=== PATIENT | male | born 1975 | race African-American/Black ===

== ENCOUNTER 2018-06-17 18:46 | Emergency (ER) | payer SELFPAY ==
[2018-06-17 18:56] VITALS: BMI 25.1
[2018-06-17] MEDS ORDERED: ACETAMINOPHEN 325 MG TABLET (FP) ONE (20:00)
--- NOTE | 2018-06-17 20:30 | PDOC ---
Attending Attestation - HPI HPI: The patient is a 42 year old male, with a significant PMH of seizure disorder ( compliant with meds), who presents to the emergency department today s/p witnessed seizure 2.5 hours ago, also complaining of a headache and left elbow pain. As per patients mother, she notes she was present when the seizure took place and states he returned to normal mental state following the episode. Patient denies tongue biting, urination on self, or bowel incontinence during the episode. He is now complaining of an associated headache. Patient also notes the associated elbow pain is localized, and is exacerbated with flexion. The patient denies chest pain, shortness of breath, and dizziness. Denies fever, chills, nausea, vomit, diarrhea and constipation. Allergies: NKA Social history: Denies EtOH or recreational drug use. PCP: Dr. Cris Rahman Neurologist: Dr. Merida 06/17/18 20:44 <Perla Ralph - Last Filed: 06/17/18 22:50> - Resident Resident Name: Hakan Morales - ED Attending Attestation I have performed the following: I have examined & evaluated the patient, The case was reviewed & discussed with the resident, I agree w/resident's findings & plan, Exceptions are as noted - Physicial Exam PE: 06/17/18 20:58 Well appearing, ALLY, AOx3 NCAT, PERRL, EOMI Neck supple, no midline tenderness TTP L elbow, no deformities, swelling MAX, FROM Ambulates with strong, steady gait NFD - Medical Decision Making 06/17/18 20:57 Breakthrough seizure in pt with known seizures and compliant with meds, followed closely by Dr Merida f/u with Dr. Merida likely dc <Anthony Hewitt - Last Filed: 06/17/18 23:01>
[2018-06-17] MEDS ORDERED: ACETAMINOPHEN 325 MG TABLET (FP) PO ONE (20:36)
--- NOTE | 2018-06-17 20:54 | PDOC ---
History of Present Illness - General Chief Complaint: Seizure Stated Complaint: SEIZURE Time Seen by Provider: 06/17/18 19:32 History Source: Patient Exam Limitations: No Limitations - History of Present Illness Initial Comments: 06/17/18 20:36 The patient is a 42M with a PMH of seizures who presents to the ER after having a witnessed seizure. The patient states that he was in his normal state of health today and was in the kitchen with his mother when he had LOC and his mother states that she noticed him seizing. He does not know how long it lasted but denies bowel/bladder incontinence, tongue biting, but admits to pain in his L elbow on active flexion. He admits to a mild headache diffusely throughout his head. He denies fever, chills, nausea, vomiting, numbness, tingling, and weakness. Past History - Past Medical History Allergies/Adverse Reactions: Allergies Allergy/AdvReac Type Severity Reaction Status Date / Time peanut Allergy Verified 06/17/18 18:49 Home Medications: Ambulatory Orders Divalproex Sodium [Depakote] 1,000 mg PO BID 06/17/18 Phenytoin Na Extended [Dilantin -] 250 mg PO BID 06/17/18 COPD: No CHF: No Seizures: Yes - Suicide/Smoking/Psychosocial Hx Smoking History: Never smoked Have you smoked in the past 12 months: No Information on smoking cessation initiated: No Hx Alcohol Use: No Drug/Substance Use Hx: No Review of Systems - Review of Systems Able to Perform ROS?: Yes Comments:: 06/17/18 20:55 GENERAL/CONSTITUTIONAL: No fever or chills. No weakness. HEAD, EYES, EARS, NOSE AND THROAT: No change in vision. No ear pain or discharge. No sore throat. CARDIOVASCULAR: No chest pain, palpitations, or lightheadedness. RESPIRATORY: No cough, wheezing, shortness of breath, or hemoptysis. GASTROINTESTINAL: No nausea, vomiting, diarrhea, constipation, or abdominal pain. GENITOURINARY: No dysuria, frequency, hematuria, or change in urination. MUSCULOSKELETAL: Positive for L elbow pain. No joint or muscle swelling or pain. No neck or back pain. SKIN: No rash or lesions. NEUROLOGIC: Positive for seizure and headache. No numbness, tingling, focal weakness, loss of consciousness, or change in strength/sensation. ENDOCRINE: No increased thirst. No abnormal weight change. HEMATOLOGIC/LYMPHATIC: No anemia, easy bleeding, or history of blood clots. ALLERGIC/IMMUNOLOGIC: No hives or skin allergy. Is the patient limited [place] proficient: No *Physical Exam - Vital Signs Last Vital Signs Temp Pulse Resp BP Pulse Ox 97.6 F 78 14 130/70 100 06/17/18 18:50 12 18:50 12 18:50 06/17/18 18:50 06/17/18 18:50 - Physical Exam Comments: 06/17/18 20:57 GENERAL: Well developed, well nourished. Awake and alert. No acute distress. HEENT: Normocephalic, atraumatic. Hearing grossly normal. Moist mucous membranes. PERRLA, EOMI. No conjunctival pallor. Sclera are non-icteric. NECK: Supple. Full ROM. No JVD. CARDIOVASCULAR: Regular rate and rhythm. No murmurs, rubs, or gallops. PULMONARY: No evidence of respiratory distress. Lungs clear to auscultation bilaterally. No wheezing, rales or rhonchi. ABDOMINAL: Soft. Non-tender. Non-distended. No rebound or guarding. GENITOURINARY: No CVA tenderness bilaterally. MUSCULOSKELETAL: Limited flexion on L elbow w/o TTP over entire humerus, elbow joint, and radius/ulna. Otherwise, normal range of motion at all joints. No bony deformities or tenderness. EXTREMITIES: No cyanosis. No clubbing. No edema. No calf tenderness or swelling. SKIN: Warm and dry. Normal capillary refill. No rashes. No jaundice. NEUROLOGICAL: Alert, awake, appropriate. Cranial nerves 2-12 grossly intact. Normal speech. Gait is normal without ataxia. PSYCHIATRIC: Cooperative. Good eye contact. Appropriate mood and affect. Moderate Sedation - Procedure Monitoring Vital Signs: Procedure Monitoring Vital Signs Temperature 97.6 F 06/17/18 18:50 Pulse Rate 78 06/17/18 18:50 Respiratory Rate 14 06/17/18 18:50 Blood Pressure 130/70 06/17/18 18:50 O2 Sat by Pulse Oximetry (%) 100 06/17/18 18:50 ED Treatment Course - LABORATORY CBC & Chemistry Diagram: 06/17/18 20:15 06/17/18 20:15 Medical Decision Making - Medical Decision Making 06/17/18 20:58 The patient is a 42M with a PMH of seizures who presents after having a seizure. Pt is well appearing and has not had any seizures since 2016. Exam normal. No concerning exam findings requiring repeat imaging. Will order CBC, CMP and d/w Dr. Merida, pt's neurologist to establish a plan for follow up. 06/17/18 22:48 CBC and CMP WNL. Paging Dr. Merida for recs. 06/17/18 22:55 Pt requests to sign out AMA. I have encouraged him to f/u with his neurologist and return if any worsening or persistent symptoms. *DC/Admit/Observation/Transfer Diagnosis at time of Disposition: Seizure - Discharge Dispostion Disposition: AGAINST MEDICAL ADVICE Decision to Admit order: No - Referrals Referrals: Cris Rahman [Primary Care Provider] - - Patient Instructions - Post Discharge Activity
[2018-06-17 21:02] LABS: BASO % 0.8 % (0-2.0); EOS % 0.3 % (0-4.5); HEMATOCRIT 47.6 % (35.4-49); HEMOGLOBIN 16.5 GM/dL (11.7-16.9); MCH 32.2 pg (25.7-33.7); MCHC 34.6 g/dl (32.0-35.9); MEAN PLT VOLUME 8.7 fl (7.5-11.1); NEUT % 68.9 % (42.8-82.8); PLATELET COUNT 262 K/MM3 (134-434); RBC 5.12 M/mm3 (4.00-5.60); RDW 13.1 % (11.9-15.9); WHITE BLOOD COUNT 5.4 K/mm3 (4.0-10.0)
[2018-06-17 21:49] LABS: ALBUMIN 4.3 g/dl (3.4-5.0); ALK PHOS 67 U/L (45-117); ANION GAP 7 MMOL/L (8-16); BILIRUBIN,TOTAL 0.7 mg/dL (0.2-1); BLOOD UREA NITROGEN 13 mg/dL (7-18); CALCIUM 9.2 mg/dL (8.5-10.1); CHLORIDE 100 mmol/L (98-107); CO2 31 mmol/L (21-32); CREATININE 1.1 mg/dL (0.55-1.3); GLUCOSE,RANDOM 76 mg/dL (74-106); POTASSIUM 4.2 mmol/L (3.5-5.1); SGOT/AST 26 U/L (15-37); SGPT/ALT 34 U/L (13-61); SODIUM 138 mmol/L (136-145); TOT PROT 7.4 g/dl (6.4-8.2)
[2018-06-17 22:53] VITALS: BP 148/83; PULSE 77; TEMP 98.2
== END 2018-06-17 22:54 | disposition left against medical advice (07) ==
LOC: JER 18:46
DX: R56.9 Unspecified convulsions (principal)
CPT/HCPCS: 36415; 80053; 82550; 82553; 85025; 99283-25

== ENCOUNTER 2018-11-10 13:07 | Observation (INO) | payer MEDICARE ==
--- NOTE | 2018-11-10 13:34 | PDOC ---
History of Present Illness - General Chief Complaint: Seizure Stated Complaint: SEIZURE Time Seen by Provider: 11/10/18 13:29 - History of Present Illness Initial Comments: 43 year old male with PMH of seizure disorder (suspected s/p anoxic brain injury) presenting with seizure lasting <1 minute approximately 30 minutes prior. States that he was in his chair when it occurred but is unclear if he fell because he was very confused when he woke up. Denies any fevers, chills, nausea, vomiting, cough, or recent illness. He is compliant with his medications and his last seizure was a year ago. His Neurologist is Dr. Baird and his PCP is Silvia. 11/10/18 13:46 Past History - Past Medical History Allergies/Adverse Reactions: Allergies Allergy/AdvReac Type Severity Reaction Status Date / Time peanut Allergy Verified 06/17/18 18:49 Home Medications: Ambulatory Orders Divalproex Sodium [Depakote] 1,000 mg PO BID 06/17/18 Phenytoin Na Extended [Dilantin -] 250 mg PO BID 06/17/18 COPD: No CHF: No Seizures: Yes - Immunization History Immunization Up to Date: Yes - Suicide/Smoking/Psychosocial Hx Smoking History: Never smoked Have you smoked in the past 12 months: No Hx Alcohol Use: No Drug/Substance Use Hx: No Review of Systems - Review of Systems Constitutional: No: Chills, Diaphoresis, Fever, Loss of Appetite HEENTM: No: Blurred Vision, Tearing Respiratory: No: Cough, Shortness of Breath Cardiac (ROS): No: Chest Pain, Irregular Heart Rate ABD/GI: No: Nausea, Vomiting : No: Dysuria, Discharge Integumentary: No: Bruising, Lesions, Lumps Neurological: Yes: Headache. No: Numbness, Paresthesia Psychiatric: No: Anxiety, Depression Hematologic/Lymphatic: No: Anemia, Blood Clots, Easy Bleeding *Physical Exam - Vital Signs Last Vital Signs Temp Pulse Resp BP Pulse Ox 98.3 F 87 18 120/72 99 11/10/18 13:11 11/10/18 13:11 11/10/18 13:11 11/10/18 13:11 11/10/18 13:11 - Physical Exam General Appearance: Yes: Nourished, Appropriately Dressed. No: Apparent Distress HEENT: positive: EOMI, DIANNA, Normal ENT Inspection, Normal Voice Neck: positive: Trachea midline, Normal Thyroid, Supple. negative: Tender, Rigid Respiratory/Chest: positive: Lungs Clear, Normal Breath Sounds. negative: Chest Tender, Respiratory Distress, Accessory Muscle Use Cardiovascular: positive: Regular Rhythm, Regular Rate Gastrointestinal/Abdominal: positive: Normal Bowel Sounds, Flat, Soft. negative : Tender Lymphatic: negative: Adenopathy, Tenderness Musculoskeletal: positive: Normal Inspection. negative: Decreased Range of Motion Extremity: positive: Normal Capillary Refill, Normal Inspection, Normal Range of Motion. negative: Tender Integumentary: positive: Normal Color, Dry, Warm Neurologic: positive: Fully Oriented, Alert, Normal Mood/Affect, Normal Response , Motor Strength 5/5 Medical Decision Making - Medical Decision Making 43 year old male who suffered a seizure without obvious inciting event and has been asymptomatic/ symptom free for his entire stay. His phenytoin level returned low so we loaded him with 1 G of Dilantin per Dr. Baird's instructions. Patient tolerated his medication well and was discharged with follow up instructions and return precautions. He will follow up with Dr. Baird this week. 11/10/18 15:06 *DC/Admit/Observation/Transfer Diagnosis at time of Disposition: Seizure - Discharge Dispostion Disposition: HOME Condition at time of disposition: Improved Decision to Admit order: No - Referrals Referrals: Bronson Merida MD [Staff Physician] - - Patient Instructions Printed Discharge Instructions: DI for Seizure Disorder -- Adult Additional Instructions: Please take your medications as prescribed. Please see Dr. Merida this week. Please return to the ED if you have new or worsening symptoms. - Post Discharge Activity
[2018-11-10] MEDS ORDERED: ACETAMINOPHEN 500 MG TABLET (FP) PO ONE (14:25)
[2018-11-10] MEDS ORDERED: ACETAMINOPHEN 325 MG TABLET (FP) ONE (14:31)
[2018-11-10 14:44] LABS: PHENYTOIN (DILANTIN) < 0.4 ug/ml (10.0-20.0)
[2018-11-10] MEDS ORDERED: PHENYTOIN NA EXTENDED 100 MG CAPSULE (FP) PO ONE (15:00)
[2018-11-10] MEDS ORDERED: PHENYTOIN SODIUM 100 MG/2 ML VIAL IVPB ONE (15:05)
--- NOTE | 2018-11-10 16:44 | PDOC ---
Documentation entered by Freya Wan SCRIBE, acting as scribe for Keven Roa MD. Keven Roa MD: This documentation has been prepared by the Savage saha Amanda, SCRIBE, under my direction and personally reviewed by me in its entirety. I confirm that the documentation accurately reflects all work, treatment, procedures, and medical decision making performed by me. Attending Attestation - Resident Resident Name: GregBishopmarcial - ED Attending Attestation I have performed the following: I have examined & evaluated the patient, The case was reviewed & discussed with the resident, I agree w/resident's findings & plan, Exceptions are as noted - HPI HPI: 11/10/18 15:43 The patient is a 43 year old male with a significant past medical history of seizure disorder (last seizure 1 year ago. suspected s/p anoxic brain injury) presenting to the EDfor evaluation of seizure lasting <1 minute approximately 30 minutes prior to ED arrival. He denies any fevers, chills, nausea, vomiting, cough, or recent illness. Neruo: Dr. Merida PCP: Dr. Vega - Physicial Exam PE: 11/10/18 17:34 Vitals: Triage vital signs reviewed General Appearance: No acute distress, well nourished, well developed Head: Atraumatic Eyes: Pupils equal reactive round, extraocular movement intact Neck: Supple; No nuchal rigidity Chest Wall: Nontender Cardiac: Regular rate and rhythm, no murmurs, no rubs, no gallops Lungs: Clear to auscultation bilateral, good air movement bilaterally Abdomen: Soft, nondistended, normal bowel sounds, nontender to palpation Extremities: Full range of motion to all extremities, no cyanosis, clubbing, or edema Skin: Warm and dry, no rashes or lesions, no rash, no petechiae Neuro: AOX3; Cranial Nerves 2-12 grossly intact, Strength intact to all extremities, Sensation intact to all extremities, gait normal Psych: Normal mood, normal affect Initial Exam normal and patient had seizure in the ED shortly after initial evaluation. - Medical Decision Making 11/10/18 18:57 43 years old subtherapeutic on his Dilantin one seizure at home while receiving his fosphenytoin here in the emergency department patient had second seizure given 2 seizures today we'll also load patient on Keppra and admit hospital for further management.
[2018-11-10 17:48] LABS: BASO % 0.4 % (0-2.0); EOS % 0.3 % (0-4.5); HEMATOCRIT 45.1 % (35.4-49); HEMOGLOBIN 14.9 GM/dL (11.7-16.9); LYMPH % 17.8 % (8-40); MCH 31.6 pg (25.7-33.7); MEAN CELL VOLUME 95.5 fl (80-96); MEAN PLT VOLUME 8.3 fl (7.5-11.1); MONO % 9.2 % (3.8-10.2); NEUT % 72.3 % (42.8-82.8); PLATELET COUNT 207 K/MM3 (134-434); RBC 4.72 M/mm3 (4.00-5.60); RDW 13.2 % (11.9-15.9); WHITE BLOOD COUNT 4.9 K/mm3 (4.0-10.0)
[2018-11-10 18:23] LABS: ALBUMIN 3.7 g/dl (3.4-5.0); ALK PHOS 55 U/L (45-117); ANION GAP 7 MMOL/L (8-16); BILIRUBIN,TOTAL 0.5 mg/dL (0.2-1); BLOOD UREA NITROGEN 13 mg/dL (7-18); CALCIUM 8.7 mg/dL (8.5-10.1); CHLORIDE 103 mmol/L (98-107); CO2 27 mmol/L (21-32); GLUCOSE,RANDOM 117 mg/dL (74-106); POTASSIUM 3.9 mmol/L (3.5-5.1); SGOT/AST 44 U/L (15-37); SGPT/ALT 63 U/L (13-61); SODIUM 137 mmol/L (136-145); TOT PROT 6.7 g/dl (6.4-8.2)
[2018-11-10] MEDS ORDERED: VALPROATE SODIUM 500 MG/5 ML VIAL IVPB ONE (19:19)
[2018-11-10] MEDS ORDERED: VALPROATE SODIUM 500 MG/5 ML VIAL ONE (19:48)
[2018-11-10] MEDS ORDERED: FAMOTIDINE 20 MG/50 ML IVPB 20 MG/50 ML MG IVPB ONE ×2 (20:16→20:36)
[2018-11-10] MEDS ORDERED: SODIUM CHLORIDE 0.9% 500 ML INFUS.BAG IV ONE (20:16)
[2018-11-10] MEDS ORDERED: DOCUSATE SODIUM 100 MG CAPSULE (FP) PO PRN (20:24)
[2018-11-10] MEDS ORDERED: ACETAMINOPHEN 325 MG TABLET (FP) PO PRN (20:24)
[2018-11-10] MEDS ORDERED: diphenhydrAMINE HCL 25 MG CAPSULE (FP) PO ONE ×2 (20:25→20:36)
[2018-11-10] MEDS ORDERED: LACTATED RINGERS SOLUTION 1,000 ML IV SCH (20:30)
--- NOTE | 2018-11-10 21:06 | HP ---
Admitting History and Physical - Primary Care Physician PCP: Daniel Vega - Admission Chief Complaint: Seizure activity History of Present Illness: 43 year old M with h/o seizure disorder (maintained on dilantin and depakote) who presents to the emergency department for witnessed seizure this morning. Pt denies any prodromal symptoms and reports his mother noted generalized tonic movements and tongue biting while he was seated in a chair. Seizure activity lasted approximately 1min, he denies bowel/bladder incontinence, fever, chills, nausea, vomiting, numbness, tingling, and weakness. Last seizure activity Jun 2018. Mother activity EMS and he was transported to [facility] for evaluation. In ED: Vitals were BP 120/72, HR 87bpm, T 98.3, RR 18 O2 sat 99% Dilantin level < 0.4 (range 10-20) Depakote level < 6.0 (range 50-100). Pt reloaded with dilantin IV 1000mg but developed what appeared to be a drug rash shortly after administration. Case reviewed with Dr. merida who recommends switching pt to Keppra 750mg. Pt was also loaded with valproate sodium 1000mg x 1. Pt admitted for observation overnight and will be discharged tomorrow if stable. 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 History of Recent Travel: No Home Medications - Allergies Allergies/Adverse Reactions: Allergies Allergy/AdvReac Type Severity Reaction Status Date / Time phenytoin Allergy Mild Hives Verified 11/10/18 20:34 [From Dilantin Extended] peanut Allergy Hives Verified 11/10/18 21:03 - Home Medications Home Medications: Ambulatory Orders Divalproex Sodium [Depakote] 1,000 mg PO BID 06/17/18 Phenytoin Na Extended [Dilantin -] 250 mg PO BID 06/17/18 Family Disease History - Family Disease History Family Disease History: Other: Father (alive (65) well), Mother (alive (60) well ), Brother (alive (39) well), Sister (alive (36) well) Review of Systems - Review of Systems Constitutional: reports: No Symptoms Eyes: reports: No Symptoms HENT: reports: No Symptoms Neck: reports: No Symptoms Cardiovascular: reports: No Symptoms Respiratory: reports: No Symptoms Gastrointestinal: reports: No Symptoms Genitourinary: reports: No Symptoms Breasts: reports: No Symptoms Reported Musculoskeletal: reports: No Symptoms Integumentary: reports: Rash Neurological: reports: Seizure Endocrine: reports: No Symptoms Hematology/Lymphatic: reports: No Symptoms Psychiatric: reports: No Symptoms Physical Examination Vital Signs: Vital Signs Temperature 98.3 F 11/10/18 13:11 Pulse Rate 87 11/10/18 13:11 Respiratory Rate 18 11/10/18 13:11 Blood Pressure 120/72 11/10/18 13:11 O2 Sat by Pulse Oximetry (%) 99 11/10/18 13:11 Constitutional: Yes: Well Nourished, No Distress, Calm Eyes: Yes: Conjunctiva Clear, EOM Intact, PERRL HENT: Yes: Atraumatic, Normocephalic Neck: Yes: Supple, Trachea Midline Cardiovascular: Yes: Regular Rate and Rhythm Respiratory: Yes: Regular, CTA Bilaterally Gastrointestinal: Yes: Normal Bowel Sounds, Soft ...Rectal Exam: Yes: Deferred Breast(s): Yes: WNL Musculoskeletal: Yes: WNL Extremities: Yes: WNL Edema: No Peripheral Pulses WNL: Yes Peripheral Pulses: Left Radial: 2+, Right Radial: 2+, Left Doralis Pedis: 2+, Right Dorsalis Pedis: 2+ Integumentary: Yes: Rash (flat erythematous lesion to upper body (arms and torso )) Neurological: Yes: Alert, Oriented ...Motor Strength: WNL Psychiatric: Yes: WNL, Alert, Oriented Labs: CBC, BMP 11/10/18 17:23 11/10/18 17:23 Imaging - Results Cat Scan: Report Reviewed (Head CT 11/10/2018 Impression: Negative exam. No discrete non-contrast CT pathology is identified. There has been no definite interval change in comparison to a prior CT exam of 06/10/2016) Problem List - Problems (1) Prophylactic measure Assessment/Plan: Ambulate OOB to chair protonix 40mg daily senna/colace bowel regimen Code(s): Z29.9 - ENCOUNTER FOR PROPHYLACTIC MEASURES, UNSPECIFIED (2) Seizure disorder Assessment/Plan: pt with drug rash from Dilantin ER IV solution, switch to keppra 750mg BID depakote 1000mg BID seizure precautions Pt being followed by Dr. Bronson Merida Ativan PRN seizure activity gentle hydration overnight Assessment/Plan Code Status: Full code DISPO: pt has no SW needs. He has good outpt primary care and neuro follow up. Visit type - Emergency Visit Emergency Visit: Yes ED Registration Date: 11/10/18 Care time: The patient presented to the Emergency Department on the above date and was hospitalized for further evaluation of their emergent condition. - New Patient This patient is new to me today: Yes Date on this admission: 11/10/18 - Critical Care Critical Care patient: No
[2018-11-10] MEDS ORDERED: MAGNESIUM SULF 50% (8.12 MEQ/2 ML-1 GM VIAL) IVPB ONE (21:44)
[2018-11-10] MEDS ORDERED: LORazepam 2 MG/ML SDV VIAL IVPUSH PRN (21:45)
[2018-11-10] MEDS ORDERED: MAGNESIUM 1GM/D5W - 1 GM/100 ML IVPB IVPB ONE (21:47)
[2018-11-10] MEDS ORDERED: SENNOSIDES 8.6MG TABLET (FP) PO PRN (22:00)
[2018-11-10] MEDS ORDERED: DIVALPROEX SODIUM 500 MG TABLET E.C. ONE (22:59)
[2018-11-10] MEDS: DIVALPROEX SODIUM 500 MG TABLET E.C. PO SCH (23:04)
[2018-11-11] MEDS ORDERED: methylPREDNISolone NA SUCC 125 MG/2 ML VIAL IVPUSH ONE (03:13)
--- NOTE | 2018-11-11 03:33 | HOSP ---
Subjective - Review of Symptoms Events since last encounter: Hospitalist Encounter Notified by the RN that the patient's rash is more erythematous. Subjective: Arrived to bedside, patient is awake, alert and oriented. Patient reports noting increased redness to his arms. He denies SOB, dyshagia, tongue or throat swelling. PE performed see EMR Assessment: Patient placed in Observation for Seizure Activity. Patient appeared to develop drug rash/lesion after Dilantin was administered Patient was given Benadryl and Pepcid with improvement per the RN Plan: Solumederol 125mg IV now Benadryl 25mg IV now ID consult Will continue to monitor Other Systems: Integumentary: Rash, Redness Physical Examination Vital Signs: Vital Signs Temperature 98.4 F 11/11/18 02:04 Pulse Rate 88 11/11/18 02:04 Respiratory Rate 18 11/11/18 02:04 Blood Pressure 123/77 11/11/18 02:04 O2 Sat by Pulse Oximetry (%) 98 11/11/18 02:24 Constitutional: Yes: Well Nourished, No Distress, Calm Eyes: Yes: Conjunctiva Clear, EOM Intact, PERRL HENT: Yes: WNL, Atraumatic, Normocephalic Neck: Yes: WNL, Supple, Trachea Midline Cardiovascular: Yes: WNL, Regular Rate and Rhythm, S1, S2 Respiratory: Yes: WNL, Regular, CTA Bilaterally. No: Rhonchi, SOB, SOB on Exertion, Wheezes Integumentary: Yes: Erythema, Rash (raised macular lesion to UE, Back, Trunk, Abdomen) Neurological: Yes: WNL, Alert, Babinski negative Psychiatric: Yes: WNL, Alert Labs: CBC, BMP 11/10/18 17:23 11/10/18 17:23
[2018-11-11 05:06] VITALS: BMI 29.7
[2018-11-11 08:48] LABS: HEMATOCRIT 47.5 % (35.4-49); MCH 31.8 pg (25.7-33.7); MCHC 33.7 g/dl (32.0-35.9); MEAN CELL VOLUME 94.2 fl (80-96); MEAN PLT VOLUME 9.1 fl (7.5-11.1); PLATELET COUNT 205 K/MM3 (134-434); RBC 5.04 M/mm3 (4.00-5.60); RDW 13.5 % (11.9-15.9); WHITE BLOOD COUNT 9.6 K/mm3 (4.0-10.0)
[2018-11-11 09:29] LABS: ANION GAP 5 MMOL/L (8-16); BLOOD UREA NITROGEN 11 mg/dL (7-18); CALCIUM 8.6 mg/dL (8.5-10.1); CHLORIDE 106 mmol/L (98-107); CO2 27 mmol/L (21-32); GLUCOSE,RANDOM 98 mg/dL (74-106); MAGNESIUM 2.3 mg/dL (1.8-2.4); PHOSPHOROUS 2.2 mg/dL (2.5-4.9); POTASSIUM 4.3 mmol/L (3.5-5.1); SODIUM 138 mmol/L (136-145)
[2018-11-11] MEDS: DIVALPROEX SODIUM 500 MG TABLET E.C. PO SCH (09:33)
[2018-11-11] MEDS ORDERED: levETIRAcetam 250 MG TABLET (FP) PO SCH ×2 (10:00→17:00)
[2018-11-11] MEDS ORDERED: PANTOPRAZOLE 40 MG TABLET (FP) PO SCH (10:00)
--- NOTE | 2018-11-11 10:32 | EKG ---
Test Reason : Blood Pressure : / mmHG Vent. Rate : 085 BPM Atrial Rate : 085 BPM P-R Int : 156 ms QRS Dur : 088 ms QT Int : 372 ms P-R-T Axes : 071 049 056 degrees QTc Int : 442 ms NORMAL SINUS RHYTHM NORMAL ECG WHEN COMPARED WITH ECG OF 08-MAR-2009 20:40, NO SIGNIFICANT CHANGE WAS FOUND Confirmed by DANILO ADEN MD ([id number]) on 11/11/2018 10:32:18 AM Referred By: Confirmed By:DANILO ADEN MD
--- NOTE | 2018-11-11 12:38 | CON.NEURO ---
Consult Consult Specialty:: [facility] Referred by:: ER - History of Present Illness History of Present Illness: 43-year-old right-handed -Maldivian man with history of epilepsy patient of mine presented to the hospital yesterday with a breakthrough seizure according to the patient he was compliant he was on Dilantin 300 mg I did not see the patient for a while due to loss of the insurance unfortunately. Patient was loaded with Dilantin patient had another seizure in the emergency room. Unfortunately the call me in our after the patient started getting rash from the Dilantin. Patient was switched to Keppra 750 twice daily. Patient was admitted for observation since admission with no breakthrough seizure. Patient was started on Solu-Medrol. 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 History of Recent Travel: No Home Medications - Allergies Allergies/Adverse Reactions: Allergies Allergy/AdvReac Type Severity Reaction Status Date / Time phenytoin Allergy Mild Hives Verified 11/10/18 20:34 [From Dilantin Extended] peanut Allergy Hives Verified 11/10/18 21:03 - Home Medications Home Medications: Ambulatory Orders Divalproex Sodium [Depakote] 1,000 mg PO BID 06/17/18 Phenytoin Na Extended [Dilantin -] 250 mg PO BID 06/17/18 Family Disease History - Family Disease History Family History: Denies (sz) Family Disease History: Other: Father (alive (65) well), Mother (alive (60) well ), Brother (alive (39) well), Sister (alive (36) well) Review of Systems - Review of Systems Constitutional: reports: No Symptoms Eyes: reports: No Symptoms Neurological: reports: Headache, Incoordination, Numbness Physical Exam-Neuro Vital Signs: Vital Signs Temperature 97.7 F 11/11/18 09:32 Pulse Rate 90 11/11/18 09:32 Respiratory Rate 18 11/11/18 09:32 Blood Pressure 141/83 11/11/18 09:32 O2 Sat by Pulse Oximetry (%) 99 11/11/18 04:45 Constitutional: Yes: Well Nourished Neck: Yes: WNL Cardiovascular: Yes: WNL Labs: CBC, BMP 11/11/18 07:45 11/11/18 07:45 - Neuro Exam Level Of Consciousness: Yes: Alert, Oriented to Person, Oriented to Place Eyes: Yes: PERRLA Speech: WNL Dominant Hand: Right Cranial Nerves II-XII Intact: Yes Gag: Present DTR's: 1+ Left Bicep, 1+ Right Bicep, 1+ Left Brachioradialis, 1+ Right Brachioradialis Response to light touch: Normal Response to pain prick: Normal Response to temperature: Normal Response to vibration: Normal Motor Strength: 4/5: Left Arm, Right Arm, Left Leg, Right Leg Problem List - Problems (1) Seizure Assessment/Plan: 1. Seizure precautions. 2. Continue Depakote the same. 3. Keppra 750 twice daily. 4. Neurologically patient can be discharged home with follow-up with neurology. Code(s): R56.9 - UNSPECIFIED CONVULSIONS
--- NOTE | 2018-11-11 14:31 | DS ---
Physical Exam: SUBJECTIVE: Patient seen and examined OBJECTIVE: Vital Signs Period Temp Pulse Resp BP Sys/Araiza Pulse Ox Last 24 Hr 97.7 F-98.6 F 85-90 18-18 123-141/73-83 98-99 PHYSICAL EXAM GENERAL: Awake, alert, and fully oriented, in no acute distress. HEAD: Normal with no signs of trauma. EYES: Pupils equal, round and reactive to light, extraocular movements intact, sclera anicteric, conjunctiva clear. No lid lag. EARS, NOSE, THROAT: nares patent, oropharynx clear without exudates. Moist mucous membranes. NECK: Normal range of motion, supple without lymphadenopathy, JVD, or masses. LUNGS: Breath sounds equal, clear to auscultation bilaterally. No wheezes, and no crackles. No accessory muscle use. HEART: Regular rate and rhythm, normal S1 and S2 without murmur, rub or gallop. ABDOMEN: Soft, nontender, not distended, normoactive bowel sounds, no guarding, no rebound, no masses. MUSCULOSKELETAL: Normal range of motion at all joints. No bony deformities or tenderness. No CVA tenderness. UPPER EXTREMITIES: 2+ pulses, warm, well-perfused. No cyanosis. No clubbing. No peripheral edema. LOWER EXTREMITIES: 2+ pulses, warm, well-perfused. No calf tenderness. No peripheral edema. NEUROLOGICAL: Cranial nerves II-XII intact. Normal speech. PSYCHIATRIC: Cooperative. Good eye contact. Appropriate mood and affect. SKIN: Warm, dry, erythematous lesions noted b/l UEs, normal capillary refill. LABS Laboratory Results - last 24 hr 11/10/18 11/10/18 11/10/18 13:58 17:23 17:23 WBC 4.9 RBC 4.72 Hgb 14.9 Hct 45.1 MCV 95.5 MCH 31.6 MCHC 33.0 RDW 13.2 Plt Count 207 D MPV 8.3 Absolute Neuts (auto) 3.5 Neutrophils % 72.3 Lymphocytes % 17.8 Monocytes % 9.2 Eosinophils % 0.3 Basophils % 0.4 Nucleated RBC % 0 Sodium 137 Potassium 3.9 Chloride 103 Carbon Dioxide 27 Anion Gap 7 L BUN 13 Creatinine 1.0 Creat Clearance w eGFR 81.94 Random Glucose 117 H Calcium 8.7 Phosphorus Magnesium Total Bilirubin 0.5 AST 44 H ALT 63 H Alkaline Phosphatase 55 Total Protein 6.7 Albumin 3.7 TSH Phenytoin < 0.4 L Valproic Acid 6.0 L 11/11/18 11/11/18 07:45 07:45 WBC 9.6 RBC 5.04 Hgb 16.0 Hct 47.5 MCV 94.2 MCH 31.8 MCHC 33.7 RDW 13.5 Plt Count 205 MPV 9.1 Absolute Neuts (auto) Neutrophils % Lymphocytes % Monocytes % Eosinophils % Basophils % Nucleated RBC % Sodium 138 Potassium 4.3 Chloride 106 Carbon Dioxide 27 Anion Gap 5 L BUN 11 Creatinine 1.0 Creat Clearance w eGFR 81.94 Random Glucose 98 Calcium 8.6 Phosphorus 2.2 L Magnesium 2.3 Total Bilirubin AST ALT Alkaline Phosphatase Total Protein Albumin TSH 0.53 Phenytoin Valproic Acid HOSPITAL COURSE: Date of Admission:11/10/18 Date of Discharge: 11/11/18 Minutes to complete discharge: 45 Discharge Summary Reason For Visit: SEIZURE DISORDER Current Active Problems Prophylactic measure (Acute) Seizure (Acute) Procedures: Principal: CXR 11/10/2018. Impression: No acute chest pathology. Reported By: Dileep Flores MD. 11/10/18 0171. . LE venous doppler 11/10/2018. IMPRESSION: The study is limited due to the patient' s size. The distal superficial femoral veins were poorly imaged. There is no evidence of deep venous thrombosis within the common, deep and visualized portions of. the superficial femoral veins, as well as the popliteal and posterior tibial veins. The greater saphenous veins are also patent. These veins are fully compressible, as well. IMPRESSION: No evidence of deep venous thrombosis. Limited study as described above Reported By: Shantanu Elizondo MD. . CT head without contrast 11/10/2018. IMPRESSION: Mild- to-moderate volume loss, ventricular dilatation and probable periventricular chronic microvascular ischemic disease changes. No CT evidence of gross acute intracranial pathology is identified. Correlate clinically to determine further evaluation and follow-up. Reported By: Denae Villafuerte MD 11/10/18 6915. . REnal sono 11/10/2018. Impression: There is no definite right hydronephrosis. Minimal to mild dilatation of the right renal pelvis is seen which is of unlikely clinical significance. Correlation with two-week follow-up sonography is suggested. The right renal cortex demonstrates mildly increased echogenicity suggestive of medical renal disease. The left kidney could not be evaluated at this time as the patient refused to complete the study. Reported By: Oral Flores MD 11/10/18 6411. Hospital Course: 43 year old M with h/o seizure disorder (maintained on dilantin and depakote) who presents to the emergency department for witnessed seizure this morning. Pt denies any prodromal symptoms and reports his mother noted generalized tonic movements and tongue biting while he was seated in a chair. Seizure activity lasted approximately 1min, he denies bowel/bladder incontinence, fever, chills, nausea, vomiting, numbness, tingling, and weakness. Last seizure activity Jun 2018. Mother activity EMS and he was transported to [facility] for evaluation. In ED: Vitals were BP 120/72, HR 87bpm, T 98.3, RR 18 O2 sat 99% Dilantin level < 0.4 (range 10-20) Depakote level < 6.0 (range 50-100). Pt reloaded with dilantin IV 1000mg but developed what appeared to be a drug rash shortly after administration. Case reviewed with Dr. merida who recommends switching pt to Keppra 750mg. Pt was also loaded with valproate sodium 1000mg x 1. Pt admitted for observation overnight and was discharged the following afternoon since he tolerated keppra and did not have any additional seizure activity. Pt will follow up with his neurologist outpt. Condition: Improved - Instructions Diet, Activity, Other Instructions: Discharge Instructions for Epilepsy You have been diagnosed with epilepsy, a disorder of recurring seizures. When you have a seizure, an electrical disturbance happens in your brain. There are different kinds of seizures, and each patient may have one or many types of seizures. Here are some guidelines for you and your family. If you have a seizure Ask friends and family members to learn seizure management. Also, tell them to do the following if you have a seizure: Clear the area to prevent injury. Position you on a flat, carpeted surface, if possible. Don't try to restrain you. Don't put anything in your mouth. Turn you onto your side if you start to vomit. Keep track of the date and time the seizure started, how long it lasted, whether or not you lost consciousness, a description of your body movements, what provoked the seizure (if known), and any injuries you suffered. Using a watch may help keep correct time of events. Stay with you until you regain consciousness. Call 911 if the seizure is longer than 5 minutes, if there are multiple seizures , or if you do not begin to wake up after the seizure stops. Activities Following are some things to consider: Enjoy your normal activities. Most people with epilepsy lead normal lives. Avoid hazardous activities, such as mountain climbing or scuba diving. A seizure under these conditions could lead to a fatal accident. Do not swim alone or participate in other similar activities without others nearby. Ask your healthcare provider about any restrictions on driving or other activities. Check with your [facility] department of public safety to learn whether there are any driving limitations based on your condition. Other home care Other considerations: Take your medicine exactly as directed. Skipping doses can affect the way your body handles the medicine, which could cause you to have a seizure. Don't drink alcohol or use any medicine without talking with your healthcare provider first. Seizure medicines may interact with other medicines. Make sure all of your healthcare providers have a list of all your medicines. control pills may not work as effectively when taking seizure medicines. Ask your healthcare provider if a change in control is needed. Wear a medical alert pendant or bracelet that alerts others to your condition, especially if you are allergic to seizure medicine. Join a local support group. Ask your healthcare provider for names and phone numbers. . When to seek medical attention Tell your family members or friends to call 911 right away if you have: Seizure that lasts more than 5 minutes Multiple seizures in a row No recovery of consciousness after the seizure stops Otherwise, have them call your healthcare provider immediately if you have: Seizures that are getting longer and worse Seizures that are different from those you've had in the past Seizures strong enough to cause injury Skin rash Fever of 101.4?F (38.5?C) or higher Referrals: Bronson Merida MD [Staff Physician] - Disposition: HOME - Home Medications Comprehensive Discharge Medication List: Ambulatory Orders Divalproex [Depakote -] 1,000 mg PO BID 30 Days #120 tablet.ec 11/11/18 Pantoprazole Sodium [Protonix -] 40 mg PO DAILY 30 Days #30 tablet.ec 11/11/18 levETIRAcetam [Keppra -] 750 mg PO BID 60 Days #60 tablet 11/11/18 This patient is new to me today: No Emergency Visit: Yes ED Registration Date: 11/10/18 Care time: The patient presented to the Emergency Department on the above date and was hospitalized for further evaluation of their emergent condition. Critical Care patient: No - Discharge Referral Referred to [facility] Med [facility].: No
[2018-11-11 14:55] VITALS: BP 126/60; PULSE 92; TEMP 97.8
[2018-11-12 12:31] LABS: MAGNESIUM 2.4 mg/dL (1.8-2.4); PHOSPHOROUS 1.8 mg/dL (2.5-4.9)
--- NOTE | 2018-11-13 10:57 | EKG ---
Test Reason : Blood Pressure : / mmHG Vent. Rate : 082 BPM Atrial Rate : 082 BPM P-R Int : 150 ms QRS Dur : 088 ms QT Int : 382 ms P-R-T Axes : 066 016 034 degrees QTc Int : 446 ms NORMAL SINUS RHYTHM NORMAL ECG WHEN COMPARED WITH ECG OF 08-MAR-2009 20:40, NO SIGNIFICANT CHANGE WAS FOUND Confirmed by HALEY ORTEZ MD ([id number]) on 11/13/2018 10:56:56 AM Referred By: Confirmed By:HALEY ORTEZ MD
== END 2018-11-11 18:00 | disposition home or self-care (01) ==
LOC: JER 13:07 → JERBED 16:28 → J7W 11-11 04:08
PROVIDERS: ADMIT Internal Medicine; ATTEND Nurse Practitioner Family
PROC: 3E0333Z Introduction of Anti-inflammatory into Peripheral Vein, Percutaneous Approach (ICD-10-PCS; principal; 2018-11-10)
PROC: 3E0337Z Introduction of Electrolytic and Water Balance Substance into Peripheral Vein, Percutaneous Approach (ICD-10-PCS; 2018-11-10)
PROC: 3E033GC Introduction of Other Therapeutic Substance into Peripheral Vein, Percutaneous Approach (ICD-10-PCS; 2018-11-10)
DX: G40.909 Epilepsy, unspecified, not intractable, without status epilepticus (principal); Z91.010 Allergy to peanuts; Z29.9 Encounter for prophylactic measures, unspecified
CPT/HCPCS: 36415; 70450-TC; 80048; 80053; 80164; 80185; 80186; 83735; 84100; 84443; 85025; 85027; 93005; 93010; 96365; 96375; 99284-25; G0378

== ENCOUNTER 2021-04-18 01:06 | Emergency (ER) | payer MEDICARE, OTHER ==
[2021-04-18 01:23] VITALS: BP 124/91; PULSE 71; TEMP 98.2; BMI 26.6
== END 2021-04-18 03:36 | disposition home or self-care (01) ==
LOC: JER 01:06
DX: F41.0 Panic disorder [episodic paroxysmal anxiety] (principal)
CPT/HCPCS: 93005; 93010; 99283-25

== ENCOUNTER 2021-11-15 20:21 | Emergency (ER) | payer OTHER ==
[2021-11-15 20:37] VITALS: BMI 25.1
[2021-11-15 22:14] LABS: BASO % 0.7 % (0-2.0); EOS % 0.6 % (0-4.5); HEMATOCRIT 45.5 % (35.4-49); HEMOGLOBIN 14.7 GM/dL (11.7-16.9); LYMPH % 38.8 % (8-40); MCH 30.1 pg (25.7-33.7); MCHC 32.2 g/dl (32.0-35.9); MEAN CELL VOLUME 93.4 fl (80-96); MEAN PLT VOLUME 8.8 fl (7.5-11.1); MONO % 10.5 % (3.8-10.2); NEUT % 49.4 % (42.8-82.8); PLATELET COUNT 239 10^3/uL (134-434); RBC 4.87 M/mm3 (4.00-5.60); RDW 13.2 % (11.9-15.9); WHITE BLOOD COUNT 4.5 K/mm3 (4.0-10.0)
[2021-11-15 22:38] LABS: CALCIUM 9.2 mg/dL (8.5-10.1)
[2021-11-15 22:39] LABS: ALBUMIN 3.8 g/dl (3.4-5.0); MAGNESIUM 2.3 mg/dL (1.8-2.4)
[2021-11-15 22:42] LABS: CREATININE 0.9 mg/dL (0.55-1.3); PHOSPHOROUS 3.5 mg/dL (2.5-4.9)
[2021-11-15 22:43] LABS: TOT PROT 6.8 g/dl (6.4-8.2)
[2021-11-15 22:44] LABS: BILIRUBIN,TOTAL 0.5 mg/dL (0.2-1)
[2021-11-15] MEDS ORDERED: ACETAMINOPHEN 500 MG TABLET (FP) PO ONE (22:45)
[2021-11-15] MEDS ORDERED: ACETAMINOPHEN 325 MG TABLET (FP) ONE (22:54)
[2021-11-16 00:09] LABS: PH,URINE 6.5 (5.0-8.0); URINE APPEARANCE CLEAR; URINE BILIRUBIN NEGATIVE (NEGATIVE); URINE COLOR YELLOW; URINE GLUCOSE (UA) NEGATIVE (NEGATIVE); URINE KETONE NEGATIVE (NEGATIVE); URINE LEUK ESTERASE NEGATIVE (NEGATIVE); URINE NITRITE NEGATIVE (NEGATIVE); URINE PROTEIN NEGATIVE (NEGATIVE)
[2021-11-16] MEDS ORDERED: levETIRAcetam 500 MG TABLET (FP) PO ONE ×2 (01:28→01:32)
[2021-11-16] MEDS ORDERED: VALPROATE SODIUM 250 MG/5 ML UNIT DOSE CUP PO ONE (01:28)
[2021-11-16 01:33] VITALS: BP 142/91; PULSE 76; TEMP 97.6
== END 2021-11-16 02:14 | disposition home or self-care (01) ==
LOC: JER 20:21
DX: G40.89 Other seizures (principal)
CPT/HCPCS: 36415; 71046-TC-FY; 80053; 80164; 80177; 80185; 81003; 82962; 83735; 84100; 84484; 85025; 87086; 93005; 93010; 99285-25

== ENCOUNTER 2022-05-30 00:32 | Emergency (ER) | payer OTHER ==
[2022-05-30 00:37] VITALS: BP 154/87; PULSE 78; RESP 18; TEMP 97.4; BMI 28.8
[2022-05-30] MEDS ORDERED: hydrOXYzine PAMOATE 25 MG CAPSULE (FP) PO ONE ×2 (01:05→01:08)
== END 2022-05-30 01:47 | disposition home or self-care (01) ==
LOC: JER 00:32
DX: F43.0 Acute stress reaction (principal); F41.0 Panic disorder [episodic paroxysmal anxiety]
CPT/HCPCS: 99283-25

== ENCOUNTER 2022-07-12 10:50 | Emergency (ER) | payer OTHER ==
[2022-07-12 11:31] VITALS: BP 118/84; PULSE 79; RESP 18; TEMP 98.6; BMI 27.3
[2022-07-12 13:37] LABS: BASO % 1.1 % (0-2.0); EOS % 0.4 % (0-4.5); HEMATOCRIT 47.2 % (35.4-49); HEMOGLOBIN 15.2 GM/dL (11.7-16.9); LYMPH % 23.9 % (8-40); MCH 30.4 pg (25.7-33.7); MCHC 32.2 g/dl (32.0-35.9); MEAN CELL VOLUME 94.4 fl (80-96); MEAN PLT VOLUME 8.2 fl (7.5-11.1); MONO % 10.6 % (3.8-10.2); PLATELET COUNT 267 10^3/uL (134-434); RDW 13.5 % (11.9-15.9); WHITE BLOOD COUNT 6.2 K/mm3 (4.0-10.0)
[2022-07-12 13:56] LABS: ALBUMIN 3.8 g/dl (3.4-5.0); CALCIUM 9.3 mg/dL (8.5-10.1)
[2022-07-12 13:57] LABS: MAGNESIUM 2.2 mg/dL (1.8-2.4)
[2022-07-12 14:01] LABS: TOT PROT 7.1 g/dl (6.4-8.2)
[2022-07-12 14:04] LABS: BILIRUBIN,TOTAL 0.9 mg/dL (0.2-1)
[2022-07-12] MEDS ORDERED: levETIRAcetam 500 MG/5 ML INJECTION VIAL IVPB ONE ×2 (16:17→16:21)
== END 2022-07-12 16:59 | disposition home or self-care (01) ==
LOC: JER 10:50
PROC: 3E033GC Introduction of Other Therapeutic Substance into Peripheral Vein, Percutaneous Approach (ICD-10-PCS; principal; 2022-07-12)
DX: R56.9 Unspecified convulsions (principal)
CPT/HCPCS: 36415; 80053; 80164; 80177; 83735; 85025; 93005; 93010; 99284-25

== ENCOUNTER 2022-08-26 19:43 | Emergency (ER) | payer OTHER ==
[2022-08-26 20:03] VITALS: TEMP 98.1; BMI 26.6
[2022-08-26] MEDS ORDERED: ACETAMINOPHEN 1000 MG/100 ML BAG IVPB ONE (20:22)
[2022-08-26] MEDS ORDERED: levETIRAcetam 500 MG/5 ML INJECTION VIAL IVPB ONE ×2 (20:22→20:36)
[2022-08-26 21:07] LABS: EOS % 1.1 % (0-4.5); HEMOGLOBIN 14.6 GM/dL (11.7-16.9); MCH 31.4 pg (25.7-33.7); MCHC 33.2 g/dl (32.0-35.9); MEAN CELL VOLUME 94.4 fl (80-96); MEAN PLT VOLUME 8.2 fl (7.5-11.1); MONO % 7.8 % (3.8-10.2); NEUT % 55.1 % (42.8-82.8); PLATELET COUNT 239 10^3/uL (134-434); RBC 4.66 M/mm3 (4.00-5.60); RDW 13.3 % (11.9-15.9); WHITE BLOOD COUNT 5.4 K/mm3 (4.0-10.0)
[2022-08-26] MEDS ORDERED: DIVALPROEX NA *ER* EXTEND REL 500 MG TABLET.SA (FP) PO ONE (21:30)
[2022-08-26 21:33] LABS: CALCIUM 8.8 mg/dL (8.5-10.1)
[2022-08-26 21:34] LABS: ALBUMIN 3.8 g/dl (3.4-5.0); BLOOD UREA NITROGEN 17.4 mg/dL (7-18)
[2022-08-26 21:37] LABS: CREATININE 1.2 mg/dL (0.55-1.3)
[2022-08-26 21:38] LABS: BILIRUBIN,TOTAL 0.3 mg/dL (0.2-1)
[2022-08-26] MEDS ORDERED: DIVALPROEX SODIUM 500 MG TABLET E.C. PO ONE (21:39)
[2022-08-26 22:18] VITALS: BP 138/70; PULSE 80; RESP 18
== END 2022-08-26 22:20 | disposition home or self-care (01) ==
LOC: JER 19:43
PROC: 3E033GC Introduction of Other Therapeutic Substance into Peripheral Vein, Percutaneous Approach (ICD-10-PCS; principal; 2022-08-26)
DX: R56.9 Unspecified convulsions (principal)
CPT/HCPCS: 36415; 80053; 80164; 80177; 82962; 85025; 99284-25

== ENCOUNTER 2023-11-24 11:48 | Emergency (ER) | payer OTHER ==
[2023-11-24 12:09] VITALS: TEMP 98; BMI 33.4
[2023-11-24] MEDS ORDERED: ACETAMINOPHEN 325 MG TABLET (FP) ONE (12:24)
[2023-11-24] MEDS ORDERED: LIDOCAINE 4% PATCH TP ONE (12:24)
[2023-11-24] MEDS: ACETAMINOPHEN 325 MG TABLET (FP) PO ONE (12:32)
[2023-11-24] MEDS: LIDOCAINE 4% PATCH TP ONE (12:32)
[2023-11-24] MEDS ORDERED: levETIRAcetam 500 MG TABLET (FP) PO ONE (14:12)
[2023-11-24] MEDS: levETIRAcetam 500 MG TABLET (FP) PO ONE (14:17)
[2023-11-24 14:54] VITALS: BP 119/75; PULSE 68; RESP 16
== END 2023-11-24 15:08 | disposition home or self-care (01) ==
LOC: JER 11:48
DX: G40.909 Epilepsy, unspecified, not intractable, without status epilepticus (principal); R51.9 Headache, unspecified
CPT/HCPCS: 72100-TC-FY; 82962; 93005; 93010; 99284-25

== ENCOUNTER 2024-06-04 07:20 | Emergency (ER) | payer OTHER ==
[2024-06-04 07:38] VITALS: BMI 27.3
[2024-06-04] MEDS: MECLIZINE HCL 12.5 MG TABLET PO ONE (08:15)
[2024-06-04] MEDS ORDERED: MECLIZINE HCL 25 MG TABLET (FP) ONE (08:16)
[2024-06-04] MEDS: MECLIZINE HCL 25 MG TABLET (FP) PO ONE (08:24)
[2024-06-04 10:07] LABS: BASO % 0.5 % (0-2.0); EOS % 0.7 % (0-4.5); HEMATOCRIT 46.9 % (35.4-49); HEMOGLOBIN 15.5 GM/dL (11.7-16.9); LYMPH % 38.3 % (8-40); MCH 31.1 pg (25.7-33.7); MCHC 33.2 g/dl (32.0-35.9); MEAN CELL VOLUME 93.6 fl (80-96); MEAN PLT VOLUME 8.1 fl (7.5-11.1); MONO % 12.3 % (3.8-10.2); NEUT % 48.2 % (42.8-82.8); PLATELET COUNT 230 10^3/uL (134-434); RDW 13.3 % (11.9-15.9); WHITE BLOOD COUNT 3.9 K/mm3 (4.0-10.0)
[2024-06-04 10:07] LABS: PH,URINE 8.5 (5.0-8.0); URINE APPEARANCE CLOUDY; URINE BILIRUBIN NEGATIVE (NEGATIVE); URINE COLOR YELLOW; URINE GLUCOSE (UA) NEGATIVE (NEGATIVE); URINE KETONE NEGATIVE (NEGATIVE); URINE LEUK ESTERASE NEGATIVE (NEGATIVE); URINE NITRITE NEGATIVE (NEGATIVE); URINE PROTEIN NEGATIVE (NEGATIVE); URINE UROBILINOGEN 0.2 mg/dL (0.2-1.0)
[2024-06-04 10:44] LABS: ALBUMIN 3.8 g/dl (3.4-5.0); BLOOD UREA NITROGEN 8.2 mg/dL (7-18); CALCIUM 9.4 mg/dL (8.5-10.1)
[2024-06-04 10:45] LABS: POTASSIUM 4.5 mmol/L (3.5-5.1)
[2024-06-04 10:47] LABS: CREATININE 0.9 mg/dL (0.55-1.3)
[2024-06-04 10:49] LABS: BILIRUBIN,TOTAL 1.3 mg/dL (0.2-1)
[2024-06-04] MEDS ORDERED: METOCLOPRAMIDE HCL INJECTION 10 MG/2 ML VIAL ONE (11:13)
[2024-06-04] MEDS: METOCLOPRAMIDE HCL INJECTION 10 MG/2 ML VIAL IVPUSH ONE (11:19)
[2024-06-04 11:59] LABS: HIV INTERPRETATION NEGATIVE (NEGATIVE)
[2024-06-04] MEDS: LACTATED RINGERS SOLUTION 1000 ML INFUS.BAG IV ONE (13:56)
[2024-06-04] MEDS ORDERED: ACETAMINOPHEN INJECTION 100 ML ONE (14:12)
[2024-06-04] MEDS: ACETAMINOPHEN 1000 MG/100 ML BAG IVPB ONE (14:17)
[2024-06-04] MEDS ORDERED: KETOROLAC TROMETHAMINE 15 MG/ML VIAL ONE (14:33)
[2024-06-04] MEDS: KETOROLAC TROMETHAMINE 15 MG/ML VIAL IVPUSH ONE (14:36)
[2024-06-04 15:41] VITALS: BP 116/81; PULSE 61; RESP 20; TEMP 97.7
== END 2024-06-04 15:42 | disposition home or self-care (01) ==
LOC: JER 07:20
PROC: 3E033NZ Introduction of Analgesics, Hypnotics, Sedatives into Peripheral Vein, Percutaneous Approach (ICD-10-PCS; principal; 2024-06-04)
PROC: 3E033GC Introduction of Other Therapeutic Substance into Peripheral Vein, Percutaneous Approach (ICD-10-PCS; 2024-06-04)
PROC: 3E033GC Introduction of Other Therapeutic Substance into Peripheral Vein, Percutaneous Approach (ICD-10-PCS; 2024-06-04)
DX: R42 Dizziness and giddiness (principal); R51.9 Headache, unspecified; R11.0 Nausea; Z20.822 Contact with and (suspected) exposure to COVID-19
CPT/HCPCS: 0241U-QW; 36415; 70450-TC; 71046-TC-FY; 80053; 81003; 85025; 86803; 87086; 87389; 93005; 93010; 99285-25; J0131